=== PATIENT | male | born 1985 | race Caucasian/White ===

== ENCOUNTER 2017-04-09 18:58 | Emergency (ER) | payer BC ==
--- NOTE | 2017-04-09 19:45 | UC ---
Jatin Singh Benjamin, scribed for Manish Moody MD on 04/09/17 at 1928 . Psychiatric Complaint HPI - HPI Summary HPI Summary: 31yo male accompanied with his , c/o having anxiety attacks and feeling depressed in the last 2 weeks. Pt reports being very stressful, and also not able to sleep well. Pt says he is emotionally unstable, lost all of his appetite , and his symptoms started to interfere with his work. Pt also recently got a new job. Pt also reports shaking a lot, being off balance, and intermittent left testicular aches. Pt denies SI, HI, or any hallucination. Pt is not on any meds for his anxiety, and was never on any meds before. Pt states he has had anxiety all throughout his life, but his has been supportive to cope with his symptoms. No PMHx of thyroid problems. - History Of Current Complaint Chief Complaint: UCGeneralIllness Stated Complaint: ANXIETY Time Seen by Provider: 04/09/17 19:07 Hx Obtained From: Patient, Family/Coke Inspector - Onset/Duration: Gradual Onset, Lasting Weeks - on going chronic problem, Still Present Timing: Constant Severity Initially: Moderate Severity Currently: Moderate Character: Depressed, Anxious Aggravating Factor(s): Nothing Alleviating Factor(s): Nothing Associated Signs And Symptoms: Appetite Change - reduced - Allergies/Home Medications Allergies/Adverse Reactions: Allergies Allergy/AdvReac Type Severity Reaction Status Date / Time No Known Allergies Allergy Verified 04/09/17 19:00 Home Medications: Home Medications NK [No Home Medications Reported] 04/09/17 [History Confirmed 04/09/17] PMH/Surg Hx/FS Hx/Imm Hx Psychological History: Anxiety - not officially dx, but having anxiety throughout his life - Surgical History Surgical History: None - Family History Known Family History: Positive: Other - thyroid dz - Social History Occupation: Employed Full-time Lives: With Family Alcohol Use: Daily Alcohol Amount: 2-3 beers daily Substance Use Type: None Smoking Status (MU): Never Smoked Tobacco Review of Systems Constitutional: Negative Skin: Negative Eyes: Negative ENT: Negative Respiratory: Negative Cardiovascular: Negative Gastrointestinal: Negative Genitourinary: Other - left testicular ache Motor: Negative Neurovascular: Negative Musculoskeletal: Negative Neurological: Negative Psychological: Anxious, Depressed Is Patient Immunocompromised?: No All Other Systems Reviewed And Are Negative: Yes Physical Exam Triage Information Reviewed: Yes Appearance: Well-Appearing, No Pain Distress, Well-Nourished Vital Signs: Initial Vital Signs Temp 97 F 04/09/17 19:01 Pulse 67 04/09/17 19:01 Resp 18 04/09/17 19:01 Pulse Ox 100 04/09/17 19:01 Vital Signs Reviewed: Yes Eye Exam: Normal Eyes: Positive: Conjunctiva Clear ENT: Positive: Normal ENT inspection, Hearing grossly normal Neck: Positive: Supple, Nontender Respiratory: Positive: Lungs clear, Normal breath sounds Cardiovascular: Positive: RRR, No Murmur Abdomen Description: Positive: Nontender, Soft Bowel Sounds: Positive: Present Musculoskeletal: Positive: Strength Intact, ROM Intact Neurological: Positive: Muscle Tone Normal Psychological: Positive: Other: - Flat affect, almost tearful at times. Hesitant with speech. Skin Exam: Normal Skin: Negative: rashes Psych Complaint Course/Dx - Course Course Of Treatment: Reviewed pts medication and allergy lists. Blood pressure noted. Advise pt to go to ED for further evaluation of his condition. After discussing with his , pt agrees to transfer to ED via private car. PATIENT DENIES SI/HI/HALLUCINATIONS. HE AND HIS ARE NOT CONCERNED ABOUT PERSONAL SAFETY BUT, WOULD LIKE FURTHER EVALUATION AND CARE FOR HIS ANXIETY. THEY ARE GOING TO THE EMERGENCY DEPARTMENT FOR FURTHER EVALUATION AND CARE. - Differential Dx/Diagnosis Provider Diagnoses: ANXIETY Discharge - Discharge Plan Condition: Stable Disposition: HOME Patient Education Materials: Anxiety (ED) Additional Instructions: GO DIRECTLY TO THE EMERGENCY DEPARTMENT FOR FURTHER EVALUATION AND CARE OF YOUR ANXIETY. The documentation as recorded by the Jatin hernandez Benjamin accurately reflects the service I personally performed and the decisions made by me, Manish Moody MD.
== END 2017-04-09 19:49 | disposition home or self-care (01) ==
LOC: UCEAST 18:58
DX: F41.9 Anxiety disorder, unspecified (principal); F32.9 Major depressive disorder, single episode, unspecified; N50.812 Left testicular pain
CPT/HCPCS: 99202; G0463

== ENCOUNTER 2017-04-09 20:14 | Emergency (ER) | payer BC ==
[2017-04-10 00:35] LABS: Hematocrit 40 % (42-52); Mean Corpuscular HGB Conc 35 g/dl (31-36); Mean Corpuscular Hemoglobin 30 pg (27-31); Mean Corpuscular Volume 86 fL (80-94); Mean Platelet Volume 7 um3 (7.4-10.4); Red Blood Count 4.69 10^6/ul (4.0-5.4); Red Cell Distribution Width 13 % (10.5-15); White Blood Count 6.5 10^3/ul (3.5-10.8)
[2017-04-10 00:50] LABS: ALT 12 U/L (7-52); AST 12 U/L (13-39); Albumin 4.7 g/dL (3.2-5.2); Alkaline Phosphatase 56 U/L (34-104); Anion Gap 6 mmol/L (2-11); BUN/Creatinine Ratio 10.7 (8-20); Blood Urea Nitrogen 11 mg/dL (6-24); CO2 Carbon Dioxide 28 mmol/L (22-32); Calcium 9.6 mg/dL (8.6-10.3); Chloride 105 mmol/L (101-111); EGFR Non-African American 83.2 (>60); Globulin 2.2 g/dL (2-4); Glucose 105 mg/dL (70-100); Potassium 3.5 mmol/L (3.5-5.0); Sodium 139 mmol/L (133-145); Total Protein 6.9 g/dL (6.4-8.9)
[2017-04-10 00:51] LABS: Acetaminophen < 15 mcg/mL; Alcohol < 10 mg/dL (<10); Salicylate < 2.50 mg/dL (<30)
[2017-04-10 01:01] LABS: TSH (Thyroid Stimulating Horm) 2.64 mcIU/mL (0.34-5.60)
[2017-04-10 01:04] LABS: Urine Bilirubin Negative (Negative); Urine Glucose Negative (Negative); Urine Nitrite Negative (Negative)
[2017-04-10 01:17] LABS: Benzodiazepine Urine Screen None Detected (None Detect)
[2017-04-10 01:18] VITALS: BP 143/91
--- NOTE | 2017-04-10 05:57 | ED ---
Farzaneh Singh Emily, scribed for Gustavo Grove MD on 04/10/17 at 0026 . Psychiatric Complaint - HPI Summary HPI Summary: This patient is a 31 year old M presenting to [facility] accompanied by with a chief complaint of anxiety since 2 weeks ago. He recently started a new job at [employer]; he was previously unemployed for the last couple years. Symptoms aggravated by work. Patient reports losing ability to speak, feeling overwhelmed, problems sleeping (wakes up every two hours), decrease in appetite within the past day, and depression. Patient reports low back pain, abdominal pain, strange bowel movements (mostly liquid and undigested food), and a lip twitch. Patient denies having previous counseling. describes the patient as having anxiety that is all consuming, and worsening in the last day. FHx of psychiatric disorders. 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 Onset/Duration: Sudden Onset, Lasting Weeks, Still Present Timing: Weeks Severity Initially: Moderate Severity Currently: Moderate Aggravating Factor(s): Other - Work Associated Signs And Symptoms: Positive: Sleep Disturbance, Appetite Change - Allergies/Home Medications Allergies/Adverse Reactions: Allergies Allergy/AdvReac Type Severity Reaction Status Date / Time No Known Allergies Allergy Verified 04/09/17 19:00 PMH/Surg Hx/FS Hx/Imm Hx Previously Healthy: Yes Respiratory History: Reports: Hx Asthma Sensory History: Denies: Hx Legally Blind Infectious Disease History: No Infectious Disease History: Denies: Hx Clostridium Difficile, Hx Hepatitis, Hx Human Immunodeficiency Virus (HIV), Hx of Known/Suspected MRSA, Hx Shingles, Hx Tuberculosis, Hx Known/ Suspected VRE, Hx Known/Suspected VRSA, History Other Infectious Disease, Traveled Outside the [place] in Last 30 Days - Family History Known Family History: Positive: Other - thyroid dz, pyschiatric disorder - Social History Occupation: Employed Full-time Lives: With Family Alcohol Use: Daily Alcohol Amount: 2-3 beers daily Substance Use Type: Reports: None Smoking Status (MU): Never Smoked Tobacco Review of Systems Positive: Abdominal Pain, Other - Strange bowel movements, decrease in appetite Positive: Other - Low back pain Positive: Anxious, Depressed, Other - Feeling overwhelmed, lip twitch, problems sleeping All Other Systems Reviewed And Are Negative: Yes Physical Exam - Summary Physical Exam Summary: The patient is well-nourished in no acute distress and in no acute pain. The skin is warm and dry and skin color reflects adequate perfusion. HEENT: The head is normocephalic and atraumatic. The pupils are equal and reactive. The conjunctivae are clear and without drainage. Nares are patent and without drainage. Mouth reveals moist mucous membranes and the throat is without erythema and exudate. The external ears are intact. The ear canals are patent and without drainage. The tympanic membranes are intact. Neck is supple with full range of motion and non-tender. There are no carotid bruits. There is no neck vein distension. Respiratory: Chest is non-tender. Lungs are clear to auscultation and breath sounds are symmetrical and equal. Cardiovascular: Heart is regular rate and rhythm. There is no murmur or rub auscultated. There is no peripheral edema and pulses are symmetrical and equal. Abdomen: The abdomen is soft and non-tender. There are normal bowel sounds heard in all four quadrants and there is no organomegaly palpated. Musculoskeletal: There is no back pain noted. Extremities are non-tender with full range of motion. There is good capillary refill. There is no peripheral edema or calf tenderness elicited. Neurological: Patient is alert and oriented to person, place and time. The patient has symmetrical motor strength in all four extremities. Cranial nerves are grossly intact. Deep tendon reflexes are symmetrical and equal in all four extremities. Psychiatric: The patient is anxious and depressed. Patient cannot keep eye contact. Triage Information Reviewed: Yes Vital Signs On Initial Exam: Initial Vitals Temp Pulse Resp BP Pulse Ox 98.1 F 83 16 134/93 100 04/09/17 20:28 04/09/17 20:28 04/09/17 20:28 04/09/17 20:28 04/09/17 20:28 Vital Signs Reviewed: Yes - Mikki Coma Scale Coma Scale Total: 15 Diagnostics - Vital Signs Vital Signs Temp Pulse Resp BP Pulse Ox 04/09/17 22:00 98 F 73 14 143/96 100 04/09/17 20:28 98.1 F 83 16 134/93 100 - Laboratory Lab Results: Lab Results 04/10/17 04/10/17 04/10/17 Range/Units 00:25 00:25 00:47 WBC 6.5 (3.5-10.8) 10^3/ul RBC 4.69 (4.0-5.4) 10^6/ul Hgb 14.0 (14.0-18.0) g/dl Hct 40 L (42-52) % MCV 86 (80-94) fL MCH 30 (27-31) pg MCHC 35 (31-36) g/dl RDW 13 (10.5-15) % Plt Count 247 (150-450) 10^3/ul MPV 7 L (7.4-10.4) um3 Neut % (Auto) 47.4 (38-83) % Lymph % (Auto) 39.5 (25-47) % [place] % (Auto) 8.2 (1-9) % Eos % (Auto) 3.5 (0-6) % Baso % (Auto) 1.4 (0-2) % Absolute Neuts (auto) 3.1 (1.5-7.7) 10^3/ul Absolute Lymphs (auto) 2.6 (1.0-4.8) 10^3/ul Absolute Monos (auto) 0.5 (0-0.8) 10^3/ul Absolute Eos (auto) 0.2 (0-0.6) 10^3/ul Absolute Basos (auto) 0.1 (0-0.2) 10^3/ul Absolute Nucleated RBC 0.01 10^3/ul Nucleated RBC % 0.1 Sodium 139 (133-145) mmol/L Potassium 3.5 (3.5-5.0) mmol/L Chloride 105 (101-111) mmol/L Carbon Dioxide 28 (22-32) mmol/L Anion Gap 6 (2-11) mmol/L BUN 11 (6-24) mg/dL Creatinine 1.03 (0.67-1.17) mg/dL Est GFR ( Amer) 107.0 (>60) Est GFR (Non-Af Amer) 83.2 (>60) BUN/Creatinine Ratio 10.7 (8-20) Glucose 105 H (70-100) mg/dL Calcium 9.6 (8.6-10.3) mg/dL Total Bilirubin 1.50 H (0.2-1.0) mg/dL AST 12 L (13-39) U/L ALT 12 (7-52) U/L Alkaline Phosphatase 56 (34-104) U/L Total Protein 6.9 (6.4-8.9) g/dL Albumin 4.7 (3.2-5.2) g/dL Globulin 2.2 (2-4) g/dL Albumin/Globulin Ratio 2.1 (1-3) TSH 2.64 (0.34-5.60) mcIU/mL Urine Color Urine Appearance Urine pH (5-9) Ur Specific [place] (1.010-1.030) Urine Protein (Negative) Urine Ketones (Negative) Urine Blood (Negative) Urine Nitrate (Negative) Urine Bilirubin (Negative) Urine Urobilinogen (Negative) Ur Leukocyte Esterase (Negative) Urine Glucose (Negative) Salicylates < 2.50 (<30) mg/dL Urine Opiates Screen None detected (None Detect) Acetaminophen < 15 mcg/mL Ur Barbiturates Screen None detected (None Detect) Ur Phencyclidine Scrn None detected (None Detect) Ur Amphetamines Screen None detected (None Detect) U Benzodiazepines Scrn None detected (None Detect) Urine Cocaine Screen None detected (None Detect) U Cannabinoids Screen None detected (None Detect) Serum Alcohol < 10 (<10) mg/dL 04/10/17 Range/Units 00:47 WBC (3.5-10.8) 10^3/ul RBC (4.0-5.4) 10^6/ul Hgb (14.0-18.0) g/dl Hct (42-52) % MCV (80-94) fL MCH (27-31) pg MCHC (31-36) g/dl RDW (10.5-15) % Plt Count (150-450) 10^3/ul MPV (7.4-10.4) um3 Neut % (Auto) (38-83) % Lymph % (Auto) (25-47) % [place] % (Auto) (1-9) % Eos % (Auto) (0-6) % Baso % (Auto) (0-2) % Absolute Neuts (auto) (1.5-7.7) 10^3/ul Absolute Lymphs (auto) (1.0-4.8) 10^3/ul Absolute Monos (auto) (0-0.8) 10^3/ul Absolute Eos (auto) (0-0.6) 10^3/ul Absolute Basos (auto) (0-0.2) 10^3/ul Absolute Nucleated RBC 10^3/ul Nucleated RBC % Sodium (133-145) mmol/L Potassium (3.5-5.0) mmol/L Chloride (101-111) mmol/L Carbon Dioxide (22-32) mmol/L Anion Gap (2-11) mmol/L BUN (6-24) mg/dL Creatinine (0.67-1.17) mg/dL Est GFR ( Amer) (>60) Est GFR (Non-Af Amer) (>60) BUN/Creatinine Ratio (8-20) Glucose (70-100) mg/dL Calcium (8.6-10.3) mg/dL Total Bilirubin (0.2-1.0) mg/dL AST (13-39) U/L ALT (7-52) U/L Alkaline Phosphatase (34-104) U/L Total Protein (6.4-8.9) g/dL Albumin (3.2-5.2) g/dL Globulin (2-4) g/dL Albumin/Globulin Ratio (1-3) TSH (0.34-5.60) mcIU/mL Urine Color Jennifer Urine Appearance Cloudy Urine pH 5.0 (5-9) Ur Specific [place] 1.028 (1.010-1.030) Urine Protein Negative (Negative) Urine Ketones Trace H (Negative) Urine Blood Negative (Negative) Urine Nitrate Negative (Negative) Urine Bilirubin Negative (Negative) Urine Urobilinogen Negative (Negative) Ur Leukocyte Esterase Negative (Negative) Urine Glucose Negative (Negative) Salicylates (<30) mg/dL Urine Opiates Screen (None Detect) Acetaminophen mcg/mL Ur Barbiturates Screen (None Detect) Ur Phencyclidine Scrn (None Detect) Ur Amphetamines Screen (None Detect) U Benzodiazepines Scrn (None Detect) Urine Cocaine Screen (None Detect) U Cannabinoids Screen (None Detect) Serum Alcohol (<10) mg/dL Result Diagrams: 04/10/17 00:25 04/10/17 00:25 Lab Statement: Any lab studies that have been ordered have been reviewed, and results considered in the medical decision making process. Course/Dx - Course Course Of Treatment: This patient is a 31 year old M [place] [facility] [place] by with a chief complaint of anxiety since 2 weeks ago. He recently started a new job at [employer]; he was previously unemployed for the last couple years. Symptoms aggravated by work. Patient reports losing ability to speak, feeling overwhelmed, problems sleeping (wakes up every two hours), decrease in appetite within the past day, and depression. Patient reports low back pain, abdominal pain, strange bowel movements (mostly liquid and undigested food), and a lip twitch. Patient denies having previous counseling. describes the patient as having anxiety that is all consuming, and worsening in the last day. FHx of psychiatric disorders. Physical Exam Findings. Poor eye contact. Patient appears to be extremely depressed and anxious. Medical Decision Making. Test results with no significant abnormalities. Patient medically cleared for [facility] at 0115. - Differential Dx/Clinical Impression Differential Diagnosis/HQI/PQRI: Positive: Anxiety, Depression Provider Diagnosis: Anxiety, Depression Discharge - Discharge Plan Condition: Stable Disposition: HOME Prescriptions: LORazepam TAB(*) [Ativan 1 MG TAB (*)] 1 mg PO Q8H PRN #30 tab MDD 3 PRN Reason: anxiety Patient Education Materials: Lorazepam (By mouth) Forms: *Work Release Referrals: [facility] [Outside] No Primary Care Phys,NOPCP [Primary Care Provider] - Additional Instructions: Per completion of a mental health evaluation, you are cleared for release and do not require inpatient psychiatric hospitalization at this time. Please go to nearest emergency room or call 911 if safety concerns arise or condition worsens. Follow up with outpatient mental health services in the community. Important Phone Numbers: [facility] [phone] Suicide Prevention and Crisis Services [phone] National Suicide Prevention Lifeline 007-907-PYZV (9555) [facility] [phone] Alcoholics Anonymous [phone] [facility] [phone] [place] [employer] [phone] The documentation as recorded by the Farzaneh hernandez Emily accurately reflects the service I personally performed and the decisions made by me, Gustavo Grove MD.
== END 2017-04-10 04:55 | disposition home or self-care (01) ==
LOC: ED 20:14
DX: G47.9 Sleep disorder, unspecified (principal); R10.9 Unspecified abdominal pain; M54.5 Low back pain; F41.8 Other specified anxiety disorders
CPT/HCPCS: 36415; 80053; 80307; 80320; 80329; 81003; 84443; 85025; 99283; G0480